=== PATIENT | male | born 1975 | race Caucasian/White ===

== ENCOUNTER 2024-03-30 09:40 | Emergency (ER) | payer BC ==
[2024-03-30] MEDS ORDERED: Sodium Chloride 0.9% 10 ML Syringe FLUSH PRN (10:09)
[2024-03-30 10:23] LABS: BASOPHILS ABSOLUTE AUTO 0.03 10^3/uL (0.00-0.10); BASOPHILS PERCENT AUTO 0.3 % (0.0-1.0); EOSINOPHILS ABSOLUTE AUTO 0.05 10^3/uL (0.10-0.30); EOSINOPHILS PERCENT AUTO 0.5 % (1.0-3.0); HEMATOCRIT 41.2 % (40.0-52.0); HEMOGLOBIN 13.6 g/dL (13.0-17.0); IMMATURE GRAN ABSOLUTE AUTO 0.02 10^3/uL (0.00-0.04); IMMATURE GRAN PERCENT AUTO 0.2 % (0.0-0.4); LYMPHOCYTES ABSOLUTE AUTO 0.32 10^3/uL (1.00-4.00); LYMPHOCYTES PERCENT AUTO 3.4 % (20.0-40.0); MEAN CORPUSCULAR HEMOGLOBIN 30.6 pg (27.0-31.0); MEAN CORPUSCULAR VOLUME 92.6 fL (82.0-92.0); MEAN PLATELET VOLUME 9.3 fL (7.4-10.4); MONOCYTES ABSOLUTE AUTO 0.76 10^3/uL (0.10-0.80); NEUTROPHILS ABSOLUTE AUTO 8.35 10^3/uL (2.50-7.00); NEUTROPHILS PERCENT AUTO 87.6 % (50.0-70.0); PLATELET COUNT,PLT 221 10^3/uL (150-400); RED BLOOD CELL COUNT 4.45 10^6/uL (4.50-6.00); RED CELL DISTRIBUTION WIDTH 11.7 % (11.5-14.5); WHITE BLOOD CELL COUNT,WBC 9.53 10^3/uL (5.00-10.00)
[2024-03-30] MEDS: Sodium Chloride 0.9% 1,000 ML IV ONE (10:27)
[2024-03-30 10:40] LABS: ALBUMIN 3.65 g/dL (3.40-5.00); ANION GAP 16.3 mmol/L (5-15); BILIRUBIN TOTAL 0.8 mg/dL (0.2-1.0); CALCIUM 8.8 mg/dL (8.7-10.3); CARBON DIOXIDE,CO2 25.5 mmol/L (21.0-32.0); CREATININE 1.48 mg/dL (0.51-1.17); POTASSIUM,K 3.8 mmol/L (3.5-5.1); PROTEIN TOTAL,TP 7.4 g/dL (6.4-8.2)
[2024-03-30 10:40] LABS: CORONAVIRUS COVID-19 NAA NEGATIVE (NEGATIVE); INFLUENZA A NAA NEGATIVE (NEGATIVE); INFLUENZA B NAA NEGATIVE (NEGATIVE)
== END 2024-03-30 11:58 | disposition home or self-care (01) ==
LOC: KA.ED 09:40
DX: J18.9 Pneumonia, unspecified organism (principal); I12.9 Hypertensive chronic kidney disease with stage 1 through stage 4 chronic kidney disease, or unspecified chronic kidney disease; N18.9 Chronic kidney disease, unspecified; Z88.8 Allergy status to other drugs, medicaments and biological substances; Z79.899 Other long term (current) drug therapy
CPT/HCPCS: 0240U; 71045; 80053; 85025; 96360; 99284; 99284-25; J7030